=== PATIENT | male | born 1945 | race Caucasian/White ===

== ENCOUNTER 2017-08-05 16:04 | Inpatient (IN) | payer OTHER ==
[~2017-08-05] VITALS: Ht 182.9 cm; Wt 55.5 kg
[2017-08-05 17:06] LABS: BASOPHIL % 0.1 % (0-2); PLATELET COUNT 361 x10^3mcL (130-400)
[2017-08-05 17:23] LABS: CALCIUM 9.3 mg/dL (8.5-10.1); CARBON DIOXIDE 34.5 mmol/L (21-32); CHLORIDE SERUM 93 mmol/L (98-107); GFR1 > 60 mL/min; GLUCOSE SERUM 170 mg/dL (74-106); POTASSIUM SERUM 5.1 mmol/L (3.5-5.1); SODIUM SERUM 131 mmol/L (136-145)
[2017-08-05 17:33] LABS: ALKALINE PHOSPHATASE 84 U/L (46-116); ALT/SGPT 126 U/L (16-63); AST/SGOT 157 U/L (15-37); BILIRUBIN TOTAL 0.79 mg/dL (0.20-1.00)
[2017-08-05 17:34] LABS: ALBUMIN 3.1 g/dL (3.4-5.0); TOTAL PROTEIN, SERUM 8.7 g/dL (6.4-8.2)
[2017-08-05 17:35] LABS: CK-MB 9.5 ng/mL (0-3.6)
[2017-08-05 17:40] VITALS: BP 71/50
[2017-08-05 17:41] LABS: FREE T4 1.35 ng/dL (0.76-1.46); FREE THYROXINE INDEX 2.9 ug/dL (1.4-4.5); T4(THYROXINE) 8.2 ug/dL (4.7-13.3)
[2017-08-05 17:42] LABS: T3 TOTAL 0.93 ng/mL
[2017-08-05 17:51] LABS: ERYTHROCYTE SED RATE 64 mm/hr (0-20)
[2017-08-05 18:03] LABS: C REACTIVE PROTEIN 16.9 mg/dL (<=0.9)
[2017-08-05 19:46] VITALS: BP 175/62
[2017-08-05 19:50] LABS: AMPHETAMINE QUAL UR NONE DETECTED (NEG <=1000)
[2017-08-05 19:54] LABS: UA SPECIFIC GRAVITY >=1.030 (1.005-1.035); microscopic required? YES; urine erythrocyte TRACE (NEGATIVE)
[2017-08-05 20:29] VITALS: BP 142/56
[2017-08-05 20:35] VITALS: BP 142/56
[2017-08-05] MEDS ORDERED: HEP5I IV (23:01)
[2017-08-05] MEDS ORDERED: HEP100I IV (23:01)
[2017-08-05] MEDS ORDERED: LIPI10 PO (23:02)
[2017-08-05] MEDS ORDERED: METOPROLOL TART25 M1 PO (23:02)
[2017-08-05] MEDS ORDERED: ZES5 PO (23:02)
[2017-08-05] MEDS ORDERED: MOR2I IV (23:03)
[2017-08-05] MEDS ORDERED: APAP/HYDROCODON1 T13 PO (23:03)
[2017-08-05] MEDS ORDERED: TYL325 PO (23:03)
[2017-08-05] MEDS ORDERED: L20I IV (23:04)
[2017-08-05] MEDS ORDERED: PULMICORT0.25 MG/2 IH (23:04)
[2017-08-05] MEDS ORDERED: COL100 PO (23:04)
[2017-08-05] MEDS ORDERED: MECLIZINE HCL12.5 MG PO (23:04)
[2017-08-05] MEDS ORDERED: SOL40I IV (23:05)
[2017-08-05] MEDS ORDERED: LAC PO (23:05)
[2017-08-05] MEDS ORDERED: ZOFI IV (23:05)
[2017-08-05 23:16] LABS: CHOLESTEROL/HDL RATIO 2.6; MAGNESIUM 2.6 mg/dL (1.8-2.4); PHOSPHOROUS 6.2 mg/dL (2.5-4.9)
[2017-08-06] VITALS: BP 82/58
[2017-08-06 04:00] VITALS: BP 93/55
[2017-08-06 05:10] VITALS: BP 90/68
[2017-08-06 05:33] VITALS: BP 93/55
[2017-08-06 05:58] LABS: BASOPHIL % 0.4 % (0-2); PLATELET COUNT 267 x10^3mcL (130-400); RED CELL DISTRIBUTION WIDTH 12.9 % (11.5-14.5)
[2017-08-06 06:10] LABS: CALCIUM 8.2 mg/dL (8.5-10.1); CARBON DIOXIDE 30.2 mmol/L (21-32); CHLORIDE SERUM 100 mmol/L (98-107); GFR1 > 60 mL/min; GLUCOSE SERUM 110 mg/dL (74-106); MAGNESIUM 2.1 mg/dL (1.8-2.4); PHOSPHOROUS 2.5 mg/dL (2.5-4.9); POTASSIUM SERUM 4.5 mmol/L (3.5-5.1); SODIUM SERUM 136 mmol/L (136-145)
== END 2017-08-06 07:15 | disposition short-term general hospital (02) | DRG 280 ==
LOC: ED 16:04 → IC 18:19
PROVIDERS: Family Medicine; Specialist
PROC: 0BH17EZ Insertion of Endotracheal Airway into Trachea, Via Natural or Artificial Opening (ICD-10-PCS; principal; 2017-08-05)
PROC: 5A1935Z Respiratory Ventilation, Less than 24 Consecutive Hours (ICD-10-PCS; 2017-08-05)
PROC: 02HV33Z Insertion of Infusion Device into Superior Vena Cava, Percutaneous Approach (ICD-10-PCS; 2017-08-06)
PROC: B5181ZA Fluoroscopy of Superior Vena Cava using Low Osmolar Contrast, Guidance (ICD-10-PCS; 2017-08-06)
DX: I21.3 ST elevation (STEMI) myocardial infarction of unspecified site (principal); J96.00 Acute respiratory failure, unspecified whether with hypoxia or hypercapnia; N17.0 Acute kidney failure with tubular necrosis; I50.43 Acute on chronic combined systolic (congestive) and diastolic (congestive) heart failure; J44.1 Chronic obstructive pulmonary disease with (acute) exacerbation; R65.10 Systemic inflammatory response syndrome (SIRS) of non-infectious origin without acute organ dysfunction; E44.0 Moderate protein-calorie malnutrition; E87.1 Hypo-osmolality and hyponatremia; Z68.1 Body mass index [BMI] 19.9 or less, adult; B18.2 Chronic viral hepatitis C; K72.90 Hepatic failure, unspecified without coma; R73.03 Prediabetes
CPT/HCPCS: 31500; 36556; 36600; 83880; 84439; 87804; A4628; J0330; J1170; J1642; J1644; J1940; J1956; J2060; J2704; J2920; J2930; J3490; J7030; J7613; J7633; J7644; Q0092; Q9967